=== PATIENT | male | born 1945 | race Caucasian/White ===

== ENCOUNTER 2016-06-17 06:47 | Inpatient (IN) | payer MEDICARE, OTHER ==
[~2016-06-17 06:47] MED LIST: ASPIRIN EC81 MG PO; AVAPRO150 M1 PO; CETIRIZINE HCL10 M1 PO; CINNAMON500 M1 PO; CLOBETASOL PROP15 G1 TP; DULCOLAX STOOL100 M1 PO; GLUCOPHAGE500 M3 PO; HYDROCHLOROTHIA25 M1 PO; LIPITOR40 M1 PO; MOBIC7.5 M2 PO; MULTIVITAMINS1 EAC7 PO; NORVASC10 M2 PO; PERCOCET 5-3251 EACH PO; PREDNISONE5 M1 PO; PRILOSEC OTC20 M1 PO
[2016-06-17 07:40] LABS: BASO % 0.4 % (0-2); EOS % 5.1 % (0-7); EOSINOPHIL ABSOLUTE COUNT 0.4 tho/cmm (0.0-0.7); HCT-HEMATOCRIT 39.7 % (36.0-53.5); HGB-HEMOGLOBIN 13.6 gm/dl (13.5-17.0); IMMATURE GRANULOCYTES ABSOLUTE 0.02 tho/cmm (0-0.03); IMMATURE GRANULOCYTES PERCENT 0.3 % (0-0.3); LYMPH % 28.1 % (20-45); LYMPH ABSOLUTE COUNT 1.9 tho/cmm (0.8-4.5); MCH (MEAN CORPUSCULAR HGB) 32.2 pg (28.0-32.0); MCHC MEAN CORPUSCULAR HGB CONC 34.3 % (32.0-36.0); MCV (MEAN CELL VOLUME) 93.9 fl (82.0-96.0); MEAN PLATELET VOLUME 9.4 cmc (9.4-12.4); MONO % 7.1 % (0-12); MONOCYTE ABSOLUTE COUNT 0.5 tho/cmm (0.0-1.2); NEUTROPHIL ABSOLUTE COUNT 4.1 tho/cmm (1.6-8.0); NEUTROPHIL-AUTOMATED 4.1 tho/cmm (1.6-8.0); PLATELET COUNT 307 tho/cmm (150-450); RED BLOOD COUNT 4.23 mil/cmm (4.40-5.70); RED CELL DISTRIBUTION WIDTH 12.5 % (12.4-16.4); WHITE BLOOD COUNT 6.9 tho/cmm (4.0-10.0)
[2016-06-18 05:41] LABS: BASO % 0.1 % (0-2); EOS % 1.5 % (0-7); EOSINOPHIL ABSOLUTE COUNT 0.1 tho/cmm (0.0-0.7); HGB-HEMOGLOBIN 11.2 gm/dl (13.5-17.0); IMMATURE GRANULOCYTES ABSOLUTE 0.01 tho/cmm (0-0.03); IMMATURE GRANULOCYTES PERCENT 0.1 % (0-0.3); LYMPH % 15.5 % (20-45); LYMPH ABSOLUTE COUNT 1.3 tho/cmm (0.8-4.5); MCH (MEAN CORPUSCULAR HGB) 31.4 pg (28.0-32.0); MCHC MEAN CORPUSCULAR HGB CONC 33.9 % (32.0-36.0); MCV (MEAN CELL VOLUME) 92.4 fl (82.0-96.0); MEAN PLATELET VOLUME 9.3 cmc (9.4-12.4); MONO % 8.4 % (0-12); MONOCYTE ABSOLUTE COUNT 0.7 tho/cmm (0.0-1.2); NEUTROPHIL ABSOLUTE COUNT 6.1 tho/cmm (1.6-8.0); NEUTROPHIL-AUTOMATED 6.1 tho/cmm (1.6-8.0); NEUTROPHILS % 74.4 % (40-80); PLATELET COUNT 251 tho/cmm (150-450); RED BLOOD COUNT 3.57 mil/cmm (4.40-5.70); RED CELL DISTRIBUTION WIDTH 12.3 % (12.4-16.4); WHITE BLOOD COUNT 8.2 tho/cmm (4.0-10.0)
[2016-06-19] MEDS ORDERED: ASPIR 8181 M1 PO (09:10)
[2016-06-19] MEDS ORDERED: ULTRAM50 M1 PO (09:11)
[2016-06-19] MEDS ORDERED: ROXICODONE5 M2 PO (09:11)
[2016-06-19] MEDS ORDERED: TYLENOL325 M2 PO (09:12)
== END 2016-06-19 12:10 | DRG 470 ==
LOC: SHSB 06:47 → ORE 09:40 → PACU 11:42 → 5EA 12:30
PROVIDERS: Hospitalist; ADMIT Orthopaedic Surgery Foot and Ankle Surgery
PROC: 0SR902Z Replacement of Right Hip Joint with Metal on Polyethylene Synthetic Substitute, Open Approach (ICD-10-PCS; principal; 2016-06-17)
PROC: 5A09357 Assistance with Respiratory Ventilation, Less than 24 Consecutive Hours, Continuous Positive Airway Pressure (ICD-10-PCS; 2016-06-17)
DX: M06.851 Other specified rheumatoid arthritis, right hip (principal); E11.9 Type 2 diabetes mellitus without complications; I10 Essential (primary) hypertension; G47.33 Obstructive sleep apnea (adult) (pediatric); E78.5 Hyperlipidemia, unspecified; L30.9 Dermatitis, unspecified
CPT/HCPCS: C1776; J0171; J0690; J1720; J1815; J1885; J2270; J2795; J7512